=== PATIENT | male | born 1965 | race Two or more races ===

== ENCOUNTER 2017-09-07 09:52 | Emergency (ER) | payer MEDICARE, OTHER ==
[~2017-09-07] VITALS: Ht 165.1 cm; Wt 127.0 kg
[2017-09-07 10:05] VITALS: BP 150/99
[2017-09-07] MEDS ORDERED: KETOROLAC TROMETH 60MG/2ML VIAL IM ONE (11:15)
== END 2017-09-07 11:31 | disposition home or self-care (01) ==
LOC: EDBD 09:52 → ER 09:52
DX: S40.011A Contusion of right shoulder, initial encounter (principal); E66.01 Morbid (severe) obesity due to excess calories; Z68.42 Body mass index [BMI] 45.0-49.9, adult; Z90.49 Acquired absence of other specified parts of digestive tract; V43.32XA Unspecified car occupant injured in collision with other type car in nontraffic accident, initial encounter; Y93.89 Activity, other specified; Y92.89 Other specified places as the place of occurrence of the external cause; Y99.8 Other external cause status
CPT/HCPCS: 73030